=== PATIENT | male | born 1990 | race Caucasian/White ===

== ENCOUNTER 2017-11-16 15:48 | Emergency (ER) ==
[2017-11-16 15:51] VITALS: BP 143/98; TEMP 98; BMI 24.3
--- NOTE | 2017-11-16 17:39 | ED.PDOC ---
General ED Provider: Dr. DAINA MOSLEY Chief Complaint: Sore Throat Stated Complaint: SORE THROAT Time Seen by Physician: 16:00 Mode of Arrival: Walk-In Information Source: Patient Exam Limitations: No limitations Nursing and Triage Documentation Reviewed and Agree: Yes Reviewed sepsis parameters & appropriate labs ordered?: Yes System Inflammatory Response Syndrome: Not Applicable Sepsis Protocol: For patient's 13 years and over: Temp is 96.8 and below OR 101 and greater Pulse >90 BPM Resp >20/minute Acutely Altered Mental Status Are patient's symptoms suggestive of a new infection, such as: -Pneumonia -Skin, Soft Tissue -Endocarditis -UTI -Bone, Joint Infection -Implantable Device -Acute Abdominal Infection -Wound Infection -Meningitis -Blood Stream Catheter Infection -Unknown System Inflammatory Response Syndrome: Not Applicable EENT Complaint Exam - Throat Complaint/Exam Onset/Duration: 2 DAYS Symptoms Are: Still present Timimg: Constant Initial Severity: Moderate Current Severity: Mild Aggravating: Reports: Eating Alleviating: Reports: None Associated Signs and Symptoms: Reports: Nasal congestion. Denies: Fever, Dysphagia, Drooling, Foreign body sensation, Chills, Cough, Wheezing, Hoarseness , Sinus discomfort, Difficulty breathing, Lethargy, Irritability, Decreased activity, Vomiting, Diarrhea, Decreased hearing, Ear drainage Uvula Midline: Yes Kym-tonsillar Fluctuence: No Scarlatinaform Rash Present: No Stridor Present: No Sinus Tenderness Present: No Tonsillar Hypertrophy Present: No Tonsillar Exudate Present: No Kym-tonsillar Swelling Present: No Adenopathy Present: No Splenomegaly Present: No Differential Diagnoses: URI Review of Systems - Review Of Systems Constitutional: Reports: No symptoms Eyes: Reports: No symptoms Ears, Nose, Mouth, Throat: Reports: Throat pain Respiratory: Reports: No symptoms Cardiac: Reports: No symptoms GI: Reports: No symptoms : Reports: No symptoms Musculoskeletal: Reports: No symptoms Skin: Reports: No symptoms Neurological: Reports: No symptoms Endocrine: Reports: No symptoms Hematologic/Lymphatic: Reports: No symptoms All Other Systems: Reviewed and Negative Past Medical History - Past Medical History Previously Healthy: Yes Endocrine: Reports: None Cardiovascular: Reports: None Respiratory: Reports: None Hematological: Reports: None Gastrointestinal: Reports: None Genitourinary: Reports: None Neuro/Psych: Reports: None Musculoskeletal: Reports: None Cancer: Reports: None - Surgical History General Surgical History: Reports: Unknown - Family History Family History: Reports: Unknown - Social History Smoking Status: Current every day smoker, Heavy tobacco smoker Hx Substance Use: Yes (Marijuana) Alcohol Screening: None Physical Exam - Physical Exam Appearance: Well-appearing, No pain distress, Well-nourished Eyes: MICHAEL, EOMI, Conjunctiva clear ENT: Erythema, Exudate Respiratory: Airway patent, Breath sounds clear, Breath sounds equal, Respirations nonlabored Cardiovascular: RRR, Pulses normal, No rub, No murmur GI/: Soft, Nontender, No masses, Bowel sounds normal, No Organomegaly Musculoskeletal: Normal strength, ROM intact, No edema, No calf tenderness Skin: Warm, Dry, Normal color Neurological: Sensation intact, Motor intact, Reflexes intact, Cranial nerves intact, Alert, Oriented Psychiatric: Affect appropriate, Mood appropriate Critical Care Note - Critical Care Note Total Time (mins): 0 Course - Course Vital Signs: Temp Pulse Resp BP Pulse Ox 11/16/17 15:48 98.0 F 73 20 143/98 H 96 Departure - Departure Time of Disposition: 17:38 Disposition: HOME SELF-CARE Discharge Problem: Pharyngitis Qualifiers: Pharyngitis/tonsillitis etiology: unspecified etiology Qualified Code(s): J02.9 - Acute pharyngitis, unspecified Instructions: Pharyngitis (ED) Condition: Good Pt referred to PMD for follow-up: Yes Additional Instructions: Please call your Family Physician as soon as possible to schedule a follow-up appointment. Allergies/Adverse Reactions: Allergies No Known Allergies Allergy (Verified 11/16/17 15:51) Home Medications: Ambulatory Orders 1 [No Reported Medications] 06/25/14
== END 2017-11-16 17:59 | disposition home or self-care (01) ==
LOC: ED 15:48
DX: J02.9 Acute pharyngitis, unspecified (principal); F17.210 Nicotine dependence, cigarettes, uncomplicated
CPT/HCPCS: 99282

== ENCOUNTER 2019-02-06 11:06 | Emergency (ER) ==
[2019-02-06 11:10] VITALS: BP 147/90; TEMP 98.5; BMI 23.6
[2019-02-06] MEDS ORDERED: LIDOCAINE HCL 1% SDV IM STA (11:19)
[2019-02-06] MEDS ORDERED: ROCEPHIN IM STA (11:19)
--- NOTE | 2019-02-06 11:42 | DI ---
EXAM: Three views of the left foot HISTORY: Foot ulcer COMPARISON: None available FINDINGS: No fracture or dislocation is identified. The joint spaces are maintained. No osseous erosive dominguez es are seen to suggest florid osteomyelitis. There is mild hallux valgus deformity. No discrete ulc er is identified. IMPRESSION: No acute osseous abnormality. Mild hallux valgus deformity.
--- NOTE | 2019-02-06 11:57 | ED.PDOC ---
General ED Provider: Dr. CELESTINA GARCIA-ER Chief Complaint: Toe Pain/Injury Stated Complaint: eloise got a infection after stepping in cat shit Time Seen by Physician: 11:15 Mode of Arrival: Walk-In Information Source: Patient Exam Limitations: No limitations Nursing and Triage Documentation Reviewed and Agree: Yes Does patient meet sepsis criteria?: No System Inflammatory Response Syndrome: Not Applicable Sepsis Protocol: For patient's 13 years and over: Temp is 96.8 and below OR 101 and greater Pulse >90 BPM Resp >20/minute Acutely Altered Mental Status Are patient's symptoms suggestive of a new infection, such as: -Pneumonia -Skin, Soft Tissue -Endocarditis -UTI -Bone, Joint Infection -Implantable Device -Acute Abdominal Infection -Wound Infection -Meningitis -Blood Stream Catheter Infection -Unknown Skin Complaint Exam - Skin/Soft Tissue Complaint/Exam Onset/Duration: 24 hrs Symptoms Are: Still present Timing: Constant Initial Severity: Mild Current Severity: Mild Location: left foot Character: Reports: Redness Aggravating: Reports: None Alleviating: Reports: None Associated Signs and Symptoms: Reports: Tenderness, Red streaks Related Surgical History: Reports: None Recent Exposure to Others w/Similar Symptoms: No Skin Findings: Present: Erythema Joint Tenderness Present: No Differential Diagnoses: Cellulitis, Infection Review of Systems - Review Of Systems Constitutional: Reports: No symptoms Eyes: Reports: No symptoms Ears, Nose, Mouth, Throat: Reports: No symptoms Respiratory: Reports: No symptoms Cardiac: Reports: No symptoms GI: Reports: No symptoms : Reports: No symptoms Musculoskeletal: Reports: No symptoms Skin: Reports: Rash Neurological: Reports: No symptoms Endocrine: Reports: No symptoms Hematologic/Lymphatic: Reports: No symptoms All Other Systems: Reviewed and Negative Past Medical History - Past Medical History Previously Healthy: Yes Endocrine: Reports: None Cardiovascular: Reports: None Respiratory: Reports: None Hematological: Reports: None Gastrointestinal: Reports: None Genitourinary: Reports: None Neuro/Psych: Reports: None Musculoskeletal: Reports: None Cancer: Reports: None - Surgical History General Surgical History: Reports: Unknown - Family History Family History: Reports: Unknown - Social History Smoking Status: Current every day smoker, Heavy tobacco smoker Hx Substance Use: Yes (Marijuana) Alcohol Screening: None Physical Exam - Physical Exam Appearance: Well-appearing Eyes: MICHAEL ENT: Ears normal, Nose normal, Oropharynx normal Neck: Supple Respiratory: Airway patent, Breath sounds clear, Breath sounds equal, Respirations nonlabored Cardiovascular: RRR, Pulses normal, No rub, No murmur GI/: Soft, Nontender, No masses, Bowel sounds normal, No Organomegaly Musculoskeletal: Normal strength Skin: Warm, Dry, Normal color Neurological: Sensation intact, Motor intact, Reflexes intact, Cranial nerves intact, Alert, Oriented Psychiatric: Affect appropriate, Mood appropriate Interpretation - Radiology Interpretation Radiology Interpretation By: Radiologist Radiology Results: Negative Critical Care Note - Critical Care Note Total Time (mins): 0 Course - Course Hematology/Chemistry: 02/06/19 11:30 02/06/19 11:30 Orders, Labs, Meds: Lab Review 02/06/19 02/06/19 02/06/19 11:30 11:30 11:30 WBC 7.71 RBC 5.55 Hgb 16.4 Hct 46.5 MCV 83.8 MCH 29.5 MCHC 35.3 RDW Coeff of Maris 12.0 Plt Count 118 L Immature Gran % (Auto) 0.3 Neut % (Auto) 70.0 Lymph % (Auto) 18.8 Mayes % (Auto) 8.2 Eos % (Auto) 2.1 Baso % (Auto) 0.6 Immature Gran # (Auto) 0.0 Neut # (Auto) 5.4 Lymph # (Auto) 1.5 Mayes # (Auto) 0.6 Eos # (Auto) 0.2 Baso # (Auto) 0.1 Sodium 138.5 Potassium 4.07 Chloride 104.1 Carbon Dioxide 24.4 Anion Gap 14.07 BUN 12.3 Creatinine 0.91 Estimated GFR (MDRD) 99.00 BUN/Creatinine Ratio 13.51 Glucose 93.1 Hemoglobin A1c 4.98 Calcium 9.34 Total Bilirubin 0.51 AST 20.9 ALT 19.5 Alkaline Phosphatase 27.9 L Total Protein 7.71 Albumin 4.57 Globulin 3.14 Albumin/Globulin Ratio 1.45 Orders Category Date Time Status CBC W/ AUTO DIFF Stat LAB 02/06/19 11:30 Completed COMPREHENSIVE METABOLIC PANEL Stat LAB 02/06/19 11:30 Completed ESR Stat LAB 02/06/19 11:30 Received HEMOGLOBIN A1C Stat LAB 02/06/19 11:30 Completed Ceftriaxone Sodium [Rocephin] MEDS 02/06/19 11:19 Discontinued 1 gm IM ONCE STA Lidocaine HCl/Pf [Lidocaine HCl 1% Sdv] MEDS 02/06/19 11:19 Discontinued 2.1 ml IM ONCE STA FOOT, LEFT 3 VIEWS Stat RADS 02/06/19 11:19 Completed Medications Discontinued Medications Generic Name Dose Route Start Last Admin Trade Name Pako PRN Reason Stop Dose Admin Ceftriaxone Sodium 1 gm 02/06/19 11:19 02/06/19 11:47 Rocephin IM 02/06/19 11:20 1 gm ONCE STA Administration Lidocaine HCl 2.1 ml 02/06/19 11:19 02/06/19 11:48 Lidocaine Hcl 1% Sdv IM 02/06/19 11:20 2.1 ml ONCE STA Administration Vital Signs: Temp Pulse Resp BP Pulse Ox 02/06/19 11:07 98.5 F 76 20 147/90 H 97 Departure - Departure Time of Disposition: 11:57 Disposition: HOME SELF-CARE Discharge Problem: Cellulitis of foot Instructions: Cellulitis (ED) Condition: Good Pt referred to PMD for follow-up: Yes IPMP verified?: No Additional Instructions: clindamycin 300mg qid x 7 days---bactroban ointment apply to the ulcer between the toes bid after washing with soap and water---f/u with pcp on thursday for recheck Allergies/Adverse Reactions: Allergies No Known Allergies Allergy (Verified 02/06/19 11:10) Home Medications: Ambulatory Orders 1 [No Reported Medications] 06/25/14 Disposition Discussed With: Patient, Family
== END 2019-02-06 12:04 | disposition home or self-care (01) ==
LOC: ED 11:06
DX: L03.116 Cellulitis of left lower limb (principal); F17.210 Nicotine dependence, cigarettes, uncomplicated
CPT/HCPCS: 36415; 80053; 83036; 85025; 85651; 96372; 99283